=== PATIENT | male | born 1995 | race Caucasian/White ===

== ENCOUNTER 2017-07-19 14:56 | Emergency (ER) | payer OTHER ==
[~2017-07-19] VITALS: Ht 180.3 cm; Wt 108.9 kg
[2017-07-19 15:12] VITALS: Ht 180.3 cm; Wt 108.9 kg
[2017-07-19 15:45] VITALS: BP 120/75
== END 2017-07-19 15:45 | disposition home or self-care (01) ==
LOC: ED 14:56
DX: J02.9 Acute pharyngitis, unspecified (principal)

== ENCOUNTER 2018-10-04 18:53 | Emergency (ER) | payer OTHER ==
[~2018-10-04] VITALS: Ht 180.3 cm; Wt 120.7 kg
[2018-10-04 19:25] VITALS: Ht 180.3 cm; Wt 120.7 kg
[2018-10-04 22:12] LABS: BASOPHIL % 0.7 % (0-2); PLATELET COUNT 245 x10^3mcL (130-400); RED CELL DISTRIBUTION WIDTH 13.1 % (11.5-14.5)
[2018-10-04 22:31] LABS: ALBUMIN 4.6 g/dL (3.4-5.0); ALKALINE PHOSPHATASE 100 U/L (46-116); ALT/SGPT 132 U/L (16-63); AST/SGOT 39 U/L (15-37); BILIRUBIN TOTAL 1.1 mg/dL (0.20-1.00); C REACTIVE PROTEIN 0.2 mg/dL (<=0.9); CALCIUM 9.4 mg/dL (8.5-10.1); CARBON DIOXIDE 25.5 mmol/L (21-32); CHLORIDE SERUM 102 mmol/L (98-107); CREATININE SERUM 0.9 mg/dL (0.7-1.3); GFR1 > 60 mL/min; GLUCOSE SERUM 98 mg/dL (74-106); POTASSIUM SERUM 3.8 mmol/L (3.5-5.1); SODIUM SERUM 140 mmol/L (136-145)
[2018-10-04 22:33] LABS: TOTAL PROTEIN, SERUM 8.4 g/dL (6.4-8.2)
[2018-10-04 23:59] VITALS: BP 116/62
== END 2018-10-04 23:59 | disposition home or self-care (01) ==
LOC: ED 18:53
PROVIDERS: Emergency Medicine
DX: B86 Scabies (principal); K75.9 Inflammatory liver disease, unspecified
CPT/HCPCS: 36415

== ENCOUNTER 2019-07-13 12:06 | Emergency (ER) | payer OTHER ==
[~2019-07-13] VITALS: Ht 180.3 cm; Wt 108.9 kg
[2019-07-13 12:15] VITALS: Ht 180.3 cm; Wt 108.9 kg
[2019-07-13 13:30] VITALS: BP 128/68
== END 2019-07-13 13:30 | disposition home or self-care (01) ==
LOC: ED 12:06
DX: G89.29 Other chronic pain (principal); M25.511 Pain in right shoulder; F32.9 Major depressive disorder, single episode, unspecified; J45.909 Unspecified asthma, uncomplicated

== ENCOUNTER 2019-12-03 16:47 | Emergency (ER) | payer OTHER, SELFPAY ==
[~2019-12-03] VITALS: Ht 172.7 cm; Wt 74.8 kg
[2019-12-03 17:47] VITALS: Ht 172.7 cm; Wt 74.8 kg
[2019-12-03 19:21] VITALS: BP 126/60
== END 2019-12-03 19:21 | disposition home or self-care (01) ==
LOC: ED 16:47
DX: U07.1 COVID-19 (principal)
CPT/HCPCS: Q0092; Q0162; U0003-CS

== ENCOUNTER 2019-12-05 20:19 | Inpatient (IN) | payer OTHER, SELFPAY ==
[~2019-12-05] VITALS: Ht 180.3 cm; Wt 103.0 kg
[2019-12-05 21:47] VITALS: Ht 180.3 cm; Wt 103.0 kg
[2019-12-05 22:17] LABS: BASOPHIL % 0.4 % (0-2); PLATELET COUNT 144 x10^3mcL (130-400); RED CELL DISTRIBUTION WIDTH 12.7 % (11.5-14.5)
[2019-12-05 22:22] LABS: CARBON DIOXIDE 25.5 mmol/L (21-32); CHLORIDE SERUM 100 mmol/L (98-107); CREATININE SERUM 0.9 mg/dL (0.7-1.3); GFR1 > 60 mL/min; GLUCOSE SERUM 102 mg/dL (74-106); POTASSIUM SERUM 3.3 mmol/L (3.5-5.1); SODIUM SERUM 136 mmol/L (136-145)
[2019-12-05 22:26] LABS: ALBUMIN 3.6 g/dL (3.4-5.0); ALKALINE PHOSPHATASE 71 U/L (46-116); ALT/SGPT 59 U/L (16-63); AST/SGOT 30 U/L (15-37); BILIRUBIN TOTAL 0.75 mg/dL (0.20-1.00); C REACTIVE PROTEIN 6.2 mg/dL (<=0.9); LACTIC DEHYDROGENASE (LDH) 260 U/L (100-190)
[2019-12-05] MEDS ORDERED: ZOF4 PO (23:49)
[2019-12-05] MEDS ORDERED: AUGMENTIN 875-1 EACH PO (23:50)
[2019-12-05] MEDS ORDERED: ZITHROMAX Z-PA250 MG PO (23:50)
[2019-12-06 02:50] LABS: MAGNESIUM 2.1 mg/dL (1.8-2.4); PHOSPHOROUS 3.4 mg/dL (2.5-4.9)
[2019-12-06 02:51] LABS: T3 TOTAL 1.42 ng/mL
[2019-12-06 02:54] LABS: CHOLESTEROL/HDL RATIO 3.3
[2019-12-06 03:00] LABS: FREE T4 1.08 ng/dL (0.76-1.46); FREE THYROXINE INDEX 3.1 ug/dL (1.4-4.5); T4(THYROXINE) 9.5 ug/dL (4.7-13.3)
[2019-12-06 05:20] LABS: UA SPECIFIC GRAVITY >=1.030 (1.005-1.035); microscopic required? YES; urine erythrocyte NEGATIVE (NEGATIVE)
[2019-12-06 05:27] LABS: BASOPHIL % 0.3 % (0-2); PLATELET COUNT 148 x10^3mcL (130-400); RED CELL DISTRIBUTION WIDTH 12.9 % (11.5-14.5)
[2019-12-06 05:28] LABS: AMPHETAMINE QUAL UR NONE DETECTED (See below)
[2019-12-06 05:29] LABS: CALCIUM 8.2 mg/dL (8.5-10.1); CHLORIDE SERUM 101 mmol/L (98-107); CREATININE SERUM 0.8 mg/dL (0.7-1.3); GFR1 > 60 mL/min; GLUCOSE SERUM 133 mg/dL (74-106); PHOSPHOROUS 2.7 mg/dL (2.5-4.9); POTASSIUM SERUM 3.6 mmol/L (3.5-5.1); SODIUM SERUM 136 mmol/L (136-145)
[2019-12-06 05:42] VITALS: BP 116/77
[2019-12-06 19:29] VITALS: BP 135/78
[2019-12-06 21:58] VITALS: BP 130/81
[2019-12-07 05:53] VITALS: BP 126/73
[2019-12-07 06:52] LABS: BASOPHIL % 0.3 % (0-2); PLATELET COUNT 186 x10^3mcL (130-400); RED CELL DISTRIBUTION WIDTH 12.7 % (11.5-14.5)
[2019-12-07 07:08] LABS: ALBUMIN 3.5 g/dL (3.4-5.0); ALKALINE PHOSPHATASE 66 U/L (46-116); ALT/SGPT 77 U/L (16-63); AST/SGOT 45 U/L (15-37); BILIRUBIN TOTAL 0.7 mg/dL (0.20-1.00); C REACTIVE PROTEIN 4.9 mg/dL (<=0.9); CALCIUM 8.9 mg/dL (8.5-10.1); CARBON DIOXIDE 28.3 mmol/L (21-32); CHLORIDE SERUM 101 mmol/L (98-107); CREATININE SERUM 0.8 mg/dL (0.7-1.3); GFR1 > 60 mL/min; GLUCOSE SERUM 107 mg/dL (74-106); MAGNESIUM 2.1 mg/dL (1.8-2.4); POTASSIUM SERUM 3.9 mmol/L (3.5-5.1); SODIUM SERUM 138 mmol/L (136-145); TOTAL PROTEIN, SERUM 7.5 g/dL (6.4-8.2)
[2019-12-07 10:05] VITALS: BP 135/78
[2019-12-07 14:08] VITALS: BP 113/78
[2019-12-07 17:23] VITALS: BP 140/89
[2019-12-07 21:39] VITALS: BP 134/82
[2019-12-08 05:38] VITALS: BP 110/79; BP 127/68
[2019-12-08 08:00] VITALS: BP 111/70
[2019-12-08 08:57] LABS: ALBUMIN 3.5 g/dL (3.4-5.0); ALKALINE PHOSPHATASE 68 U/L (46-116); ALT/SGPT 188 U/L (16-63); AST/SGOT 88 U/L (15-37); BILIRUBIN TOTAL 0.8 mg/dL (0.20-1.00); C REACTIVE PROTEIN 3.2 mg/dL (<=0.9); CALCIUM 9.2 mg/dL (8.5-10.1); CARBON DIOXIDE 29.2 mmol/L (21-32); CHLORIDE SERUM 102 mmol/L (98-107); CREATININE SERUM 0.7 mg/dL (0.7-1.3); GFR1 > 60 mL/min; GLUCOSE SERUM 100 mg/dL (74-106); MAGNESIUM 2.3 mg/dL (1.8-2.4); PHOSPHOROUS 4.4 mg/dL (2.5-4.9); POTASSIUM SERUM 3.9 mmol/L (3.5-5.1); SODIUM SERUM 141 mmol/L (136-145); TOTAL PROTEIN, SERUM 7.6 g/dL (6.4-8.2)
[2019-12-08 09:03] LABS: BASOPHIL % 0.3 % (0-2); PLATELET COUNT 226 x10^3mcL (130-400); RED CELL DISTRIBUTION WIDTH 12.8 % (11.5-14.5)
[2019-12-08] MEDS ORDERED: MUCINEX600 MG PO (11:38)
[2019-12-08] MEDS ORDERED: VENTOLIN H0.09 MG/A1 INH (11:38)
[2019-12-08] MEDS ORDERED: MEDROL DOSEPAK4 MG PO (11:39)
[2019-12-08] MEDS ORDERED: ELIQUIS2.5 MG PO (11:39)
[2019-12-08 11:40] VITALS: BP 113/62
[2019-12-08] MEDS ORDERED: ZITHROMAX TRI-500 MG PO (11:40)
[2019-12-08 13:48] VITALS: BP 113/62
== END 2019-12-08 15:40 | disposition home or self-care (01) | DRG 720 ==
LOC: ED 20:19 → DU 23:39
PROVIDERS: Emergency Medicine; Family Medicine; Internal Medicine Cardiovascular Disease; ADMIT Internal Medicine; ATTEND Internal Medicine
DX: A41.89 Other specified sepsis (principal); U07.1 COVID-19; J96.01 Acute respiratory failure with hypoxia; J12.89 Other viral pneumonia; E87.6 Hypokalemia; F12.10 Cannabis abuse, uncomplicated; Z56.0 Unemployment, unspecified
CPT/HCPCS: 36600; 83880; 84439; 85378; 87804; G0378; J0456; J0696; J1100; J1644; J3535; J7050; J7060; Q0092; U0003-CS

== ENCOUNTER 2020-01-13 02:57 | Emergency (ER) | payer OTHER ==
[~2020-01-13] VITALS: Ht 180.3 cm; Wt 110.2 kg
[~2020-01-13 02:57] MED LIST: AUGMENTIN 875-1 EACH PO; ELIQUIS2.5 MG PO; MEDROL DOSEPAK4 MG PO; MUCINEX600 MG PO; VENTOLIN H0.09 MG/A1 INH; ZITHROMAX TRI-500 MG PO; ZITHROMAX Z-PA250 MG PO; ZOF4 PO
[2020-01-13 03:03] VITALS: Ht 180.3 cm; Wt 110.2 kg
[2020-01-13 04:13] LABS: UA SPECIFIC GRAVITY >=1.030 (1.005-1.035); microscopic required? YES; urine erythrocyte 3+ (NEGATIVE)
[2020-01-13 04:18] LABS: BASOPHIL % 0.5 % (0-2); PLATELET COUNT 241 x10^3mcL (130-400); RED CELL DISTRIBUTION WIDTH 13.5 % (11.5-14.5)
[2020-01-13 04:27] LABS: CALCIUM 8.4 mg/dL (8.5-10.1); CARBON DIOXIDE 28.3 mmol/L (21-32); CHLORIDE SERUM 104 mmol/L (98-107); CREATININE SERUM 1.2 mg/dL (0.7-1.3); GFR1 > 60 mL/min; GLUCOSE SERUM 134 mg/dL (74-106); POTASSIUM SERUM 3.8 mmol/L (3.5-5.1); SODIUM SERUM 138 mmol/L (136-145)
[2020-01-13 04:31] LABS: ALKALINE PHOSPHATASE 96 U/L (46-116); ALT/SGPT 38 U/L (16-63); AST/SGOT 20 U/L (15-37); BILIRUBIN TOTAL 1.12 mg/dL (0.20-1.00); LIPASE 82 IU/L (73-393)
[2020-01-13 05:05] VITALS: BP 107/65
== END 2020-01-13 05:05 | disposition home or self-care (01) ==
LOC: ED 02:57
PROVIDERS: Emergency Medicine
DX: N13.2 Hydronephrosis with renal and ureteral calculous obstruction (principal); J45.909 Unspecified asthma, uncomplicated
CPT/HCPCS: J1885; J2405

== ENCOUNTER 2020-03-02 05:58 | Day surgery (SDC) | payer OTHER ==
[2020-03-01 16:56] LABS: BASOPHIL % 0.9 % (0-2); PLATELET COUNT 227 x10^3mcL (130-400); RED CELL DISTRIBUTION WIDTH 13.1 % (11.5-14.5)
[2020-03-01 17:00] LABS: CHLORIDE SERUM 103 mmol/L (98-107); CREATININE SERUM 0.9 mg/dL (0.7-1.3); GFR1 > 60 mL/min; GLUCOSE SERUM 88 mg/dL (74-106); POTASSIUM SERUM 3.7 mmol/L (3.5-5.1); SODIUM SERUM 139 mmol/L (136-145)
[~2020-03-02] VITALS: Ht 180.3 cm; Wt 95.2 kg
[2020-03-02 06:39] VITALS: BP 143/71
[2020-03-02 11:59] VITALS: BP 119/66
== END 2020-03-02 11:55 | disposition home or self-care (01) ==
LOC: DS 05:58 → OR 07:30 → DS 11:55
PROVIDERS: ATTEND Urology
DX: N13.2 Hydronephrosis with renal and ureteral calculous obstruction (principal); J45.909 Unspecified asthma, uncomplicated
CPT/HCPCS: 51610; C1769; J0696; J1170; J3010; Q9967

== ENCOUNTER 2020-03-03 19:19 | Emergency (ER) | payer OTHER ==
[~2020-03-03] VITALS: Ht 180.3 cm; Wt 108.4 kg
[2020-03-03 19:47] VITALS: Ht 180.3 cm; Wt 108.4 kg
[2020-03-03 22:30] LABS: UA SPECIFIC GRAVITY >=1.030 (1.005-1.035); microscopic required? YES; urine erythrocyte 3+ (NEGATIVE)
[2020-03-04 00:08] VITALS: BP 139/78
== END 2020-03-04 00:18 | disposition home or self-care (01) ==
LOC: ED 19:19
PROVIDERS: Emergency Medicine
DX: N39.0 Urinary tract infection, site not specified (principal); J45.909 Unspecified asthma, uncomplicated
CPT/HCPCS: Q0092